=== PATIENT | male | born 2000 | race Caucasian/White ===

== ENCOUNTER 2019-01-16 23:43 | Emergency (ER) | payer MEDICAID ==
[~2019-01-16] VITALS: Ht 182.9 cm; Wt 65.0 kg
[~2019-01-16 23:43] MED LIST: ARIP10TA33 PO; ARIP20TA5 PO; BUPR75TA5 PO; FLONASE; HYDR25CA PO; VALP250C59 PO; [UNRECOGNIZED DRUG - OTHER] PO; wellbutrin
[2019-01-16 23:45] VITALS: BP 114/76
[2019-01-17] MEDS ORDERED: HYDROcodone/APAP 5/325 TABLET ONE (00:29)
[2019-01-17] MEDS ORDERED: HYDROcodone/APAP 5/325 TABLET PO ONE (00:30)
--- NOTE | 2019-01-17 00:33 | NUR ---
Pt medicated per MAR.
--- NOTE | 2019-01-17 01:00 | NUR ---
TASK RN: DC EDUCATION PROVIDED, PT DEMONSTRATES UNDERSTANDING. PT AMBULATED STEADILY TO DC WITH RN. PT STATES FRIEND TO TRANSPORT PT HOME.
== END 2019-01-17 01:02 | disposition home or self-care (01) ==
LOC: ED 01-17 00:59
DX: K08.89 Other specified disorders of teeth and supporting structures (principal); F17.200 Nicotine dependence, unspecified, uncomplicated
CPT/HCPCS: 99283

== ENCOUNTER 2019-05-05 08:20 | Emergency (ER) | payer MEDICAID ==
[~2019-05-05] VITALS: Ht 182.9 cm; Wt 65.1 kg
[2019-05-05 08:24] VITALS: BP 106/68
--- NOTE | 2019-05-05 09:42 | NUR ---
PT TO ROOM FROM LOBBY
== END 2019-05-05 10:12 | disposition home or self-care (01) ==
LOC: ED 10:06
DX: K02.9 Dental caries, unspecified (principal); F17.200 Nicotine dependence, unspecified, uncomplicated
CPT/HCPCS: 99283

== ENCOUNTER 2019-06-07 22:14 | Emergency (ER) | payer MEDICAID ==
[~2019-06-07] VITALS: Ht 185.4 cm; Wt 61.7 kg
[2019-06-07 22:20] VITALS: BP 114/79
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
--- NOTE | 2019-06-07 22:39 | NUR ---
MD AT BEDSIDE, DRESSINGS REMOVED. PT UPDATED ON POC.
[2019-06-07] MEDS ORDERED: IBUPROFEN 200 MG TABLET ONE (22:42)
--- NOTE | 2019-06-07 22:44 | NUR ---
PT MEDICATED PER MAR.
[2019-06-07] MEDS ORDERED: IBUPROFEN 600 MG TABLET PO ONE ×2 (23:00)
--- NOTE | 2019-06-08 00:08 | NUR ---
Patient/Caregiver given discharge instructions and they have confirmed that they understand the instructions. Patient ambulatory with steady gait.
== END 2019-06-08 00:09 | disposition home or self-care (01) ==
LOC: ED 22:49
DX: S80.212A Abrasion, left knee, initial encounter (principal); S60.512A Abrasion of left hand, initial encounter; L03.116 Cellulitis of left lower limb; L03.114 Cellulitis of left upper limb; F20.9 Schizophrenia, unspecified; F32.9 Major depressive disorder, single episode, unspecified; F41.1 Generalized anxiety disorder; F17.200 Nicotine dependence, unspecified, uncomplicated; W01.0XXA Fall on same level from slipping, tripping and stumbling without subsequent striking against object, initial encounter; Y93.89 Activity, other specified; Y92.830 Public park as the place of occurrence of the external cause; Y99.8 Other external cause status
CPT/HCPCS: 99283

== ENCOUNTER 2019-09-10 04:34 | Emergency (ER) | payer MEDICAID, OTHER ==
[~2019-09-10] VITALS: Ht 188 cm; Wt 60.7 kg
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
[2019-09-10 05:37] LABS: RAPID INFLUENZA A Negative (Negative); RAPID INFLUENZA B Negative (Negative)
--- NOTE | 2019-09-10 06:01 | NUR ---
PT. PROVIDED WITH WATER AFTER OK FROM JESSIE GUERRERO. DENIES OTHER NEEDS. ALL MONITORS IN PLACE. ALL SAFETY MEASURES OBSERVED. NO DISTRESS NOTED. AWAITING CHEST X-RAY READ.
[2019-09-10 06:41] VITALS: BP 119/86
--- NOTE | 2019-09-10 06:44 | NUR ---
PT RESTING ON [facility]. MONITORING IN PLACE. ALL SAFETY MEASURES IN PLACE.
--- NOTE | 2019-09-10 06:46 | NUR ---
CALLED RADIOLOGY REGARDING XR READ. THEY ARE LOOKING INTO IT.
--- NOTE | 2019-09-10 06:51 | NUR ---
REPORT GIVEN TO ROBYN CARROLL.
[2019-09-10] MEDS ORDERED: DEXAMETHASONE 4 MG TABLET PO ONE (07:00)
[2019-09-10] MEDS ORDERED: DEXAMETHASONE 4 MG TABLET ONE (07:07)
== END 2019-09-10 07:14 | disposition home or self-care (01) ==
LOC: ED 05:09
DX: B34.9 Viral infection, unspecified (principal); F17.210 Nicotine dependence, cigarettes, uncomplicated
CPT/HCPCS: 71046; 87400; 93005; 99284

== ENCOUNTER 2020-02-03 07:53 | Emergency (ER) | payer SELFPAY ==
[~2020-02-03] VITALS: Ht 185.4 cm; Wt 62.1 kg
[2020-02-03 08:00] VITALS: BP 108/70
== END 2020-02-03 09:01 | disposition home or self-care (01) ==
LOC: ED 08:17
DX: J00 Acute nasopharyngitis [common cold] (principal); J45.909 Unspecified asthma, uncomplicated
CPT/HCPCS: 99283

== ENCOUNTER 2020-05-23 06:21 | Inpatient (IN) | payer MEDICAID, OTHER ==
[~2020-05-23] VITALS: Ht 185.4 cm; Wt 63.8 kg
[2020-05-23] MEDS ORDERED: ONDANSETRON 2MG/ML, 2ML IVPush ONE ×2 (06:30→09:00)
[2020-05-23] MEDS ORDERED: SODIUM CHLORIDE 0.9% 1,000ML IVBOLUS ONE ×2 (06:30→09:00)
[2020-05-23] MEDS: MORPHINE SULFATE 4 MG/ML, 1ML IVPush PRN ×2 (06:44→07:07)
[2020-05-23] MEDS ORDERED: ALBUTEROL/IPRATROPIUM 2.5MG/0.5MG, 3 ML ONE ×2 (06:52→06:54)
[2020-05-23 06:54] LABS: BASOPHILS # (AUTO) 0.02 x10^3/uL (0-0.3); BASOPHILS % (AUTO) 0 % (0-1); EOSINOPHILS # (AUTO) 0.19 x10^3/uL (0-0.8); EOSINOPHILS % (AUTO) 2 % (1-7); LYMPHOCYTES # (AUTO) 3.98 x10^3/uL (1-6.1); LYMPHOCYTES % (AUTO) 39 % (22-44); MD NO; MEAN CORPUSCULAR HEMOGLOBIN 31.9 pg (27.5-34.5); MEAN CORPUSCULAR HGB CONC 34.3 g/dL (33.2-36.2); MEAN CORPUSCULAR VOLUME 93.1 fL (81-97); MEAN PLATELET VOLUME 9.3 fL (7.4-10.4); MONOCYTES # (AUTO) 0.81 x10^3/uL (0-1.4); MONOCYTES % (AUTO) 8 % (2-9); NEUTROPHILS # (AUTO) 5.15 x10^3/uL (1.8-8.0); NEUTROPHILS % (AUTO) 51 % (42-75); PLATELET COUNT 184 x10^3/uL (130-400); RED BLOOD COUNT 4.94 x10^6/uL (4.38-5.82); RED CELL DISTRIBUTION WIDTH 12.9 % (9.4-14.8)
[2020-05-23] MEDS ORDERED: SILVER SULF. CRM 1% , 25GM TP ONE (07:00)
[2020-05-23] MEDS ORDERED: ALBUTEROL/IPRATROPIUM 2.5MG/0.5MG, 3 ML NPPB ONE (07:00)
[2020-05-23] MEDS ORDERED: DIPH,PERTUSS(ACELL),TET VAC/PF 0.5 ML IM-VACC ONE ×2 (07:00→08:07)
[2020-05-23 07:05] LABS: ALBUMIN 3.8 g/dL (3.4-5.0); ANION GAP 4 mmol/L (5-15); CALCIUM 8.3 mg/dL (8.5-10.1); CHLORIDE 115 mmol/L (98-107); CREATININE 0.93 mg/dL (0.7-1.3)
[2020-05-23] MEDS ORDERED: MORPHINE SULFATE 4 MG/ML, 1ML ONE (07:06)
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
--- NOTE | 2020-05-23 07:30 | NUR ---
ERP TO BEDSIDE.
[2020-05-23] MEDS ORDERED: SILVER SULF. CRM 1% , 25GM ONE (07:48)
[2020-05-23] MEDS ORDERED: HYDROmorphone 1 MG/ML, 1ML INJ ONE ×2 (08:06→08:33)
[2020-05-23] MEDS: HYDROmorphone 2 MG/ML, 1ML IVPush PRN ×2 (08:09→08:39)
[2020-05-23] MEDS ORDERED: SODIUM CHLORIDE 0.9% 1,000 ML IV ONE (08:53)
[2020-05-23] MEDS ORDERED: ONDANSETRON 2MG/ML, 2ML ONE (08:54)
[2020-05-23] MEDS ORDERED: SODIUM CHLORIDE FLUSH 10ML SYR IVF PRN (09:30)
[2020-05-23] MEDS ORDERED: NEOSPORIN OINT. PKT 1 PACKET ONE (09:39)
[2020-05-23] MEDS ORDERED: ACETAMINOPHEN 325 MG TABLET PO PRN (11:30)
[2020-05-23] MEDS ORDERED: POLYETHYLENE GLYCOL 17 GM PACKET PO PRN (11:30)
[2020-05-23] MEDS ORDERED: HYDROcodone/APAP 5/325 TABLET PO PRN (11:30)
[2020-05-23] MEDS ORDERED: BISACODYL 10 MG SUPP PR PRN (11:30)
[2020-05-23] MEDS: ONDANSETRON 2MG/ML, 2ML IVPush PRN ×2 (11:55→19:49)
[2020-05-23] MEDS: NICOTINE 21 MG/24 HR PATCH.TD24 TD SCH (11:56)
[2020-05-23] MEDS: morphine SULFATE 10 MG/ML, 1ML IVPush PRN ×4 (11:56→18:12)
[2020-05-23] MEDS: SODIUM CHLORIDE 0.9% 1,000 ML IV SCH ×2 (11:56→21:01)
[2020-05-23] MEDS: ENOXAPARIN 40 MG/0.4 ML SQ SCH ×2 (11:56→12:00)
[2020-05-23 13:24] VITALS: BP 130/72
[2020-05-23] MEDS: SILVER SULF. CRM 1%, 400GM TP SCH ×2 (16:00→21:01)
[2020-05-23] MEDS: ALBUTEROL HFA 90 MCG/SPRAY INH PRN (16:00)
[2020-05-23] MEDS: KETOROLAC 30 MG/1 ML IVPush PRN (18:48)
[2020-05-23 19:07] VITALS: BP 118/64
[2020-05-23] MEDS: HYDROcodone/APAP 10/325 MG TABLET PO SCH (19:48)
[2020-05-24 00:05] VITALS: BP 138/69
[2020-05-24] MEDS: HYDROcodone/APAP 10/325 MG TABLET PO SCH ×4 (04:27→23:16)
[2020-05-24] MEDS: SODIUM CHLORIDE 0.9% 1,000 ML IV SCH ×3 (04:27→21:25)
[2020-05-24 04:49] LABS: BASOPHILS # (AUTO) 0.01 x10^3/uL (0-0.3); BASOPHILS % (AUTO) 0 % (0-1); EOSINOPHILS # (AUTO) 0.12 x10^3/uL (0-0.8); EOSINOPHILS % (AUTO) 1 % (1-7); LYMPHOCYTES # (AUTO) 2.96 x10^3/uL (1-6.1); LYMPHOCYTES % (AUTO) 26 % (22-44); MD NO; MEAN CORPUSCULAR HEMOGLOBIN 31.3 pg (27.5-34.5); MEAN CORPUSCULAR HGB CONC 33.1 g/dL (33.2-36.2); MEAN CORPUSCULAR VOLUME 94.7 fL (81-97); MEAN PLATELET VOLUME 9.6 fL (7.4-10.4); MONOCYTES # (AUTO) 0.89 x10^3/uL (0-1.4); MONOCYTES % (AUTO) 8 % (2-9); NEUTROPHILS # (AUTO) 7.55 x10^3/uL (1.8-8.0); NEUTROPHILS % (AUTO) 66 % (42-75); PLATELET COUNT 182 x10^3/uL (130-400); RED BLOOD COUNT 4.73 x10^6/uL (4.38-5.82); RED CELL DISTRIBUTION WIDTH 12.8 % (9.4-14.8)
[2020-05-24 04:57] LABS: ANION GAP 8 mmol/L (5-15); CALCIUM 8.5 mg/dL (8.5-10.1); CHLORIDE 111 mmol/L (98-107)
[2020-05-24 04:58] LABS: CREATININE 0.68 mg/dL (0.7-1.3)
[2020-05-24] MEDS: KETOROLAC 30 MG/1 ML IVPush PRN ×2 (05:32→15:53)
[2020-05-24 06:38] VITALS: BP 121/69
[2020-05-24] MEDS ORDERED: MAGNESIUM SULFATE PMX 2GM/50ML 50 ML IV ONE (08:30)
[2020-05-24] MEDS: ONDANSETRON 2MG/ML, 2ML IVPush PRN (09:28)
[2020-05-24] MEDS: SILVER SULF. CRM 1%, 400GM TP SCH ×3 (09:28→21:25)
[2020-05-24] MEDS: morphine SULFATE 10 MG/ML, 1ML IVPush PRN ×4 (09:28→20:18)
[2020-05-24] MEDS: ENOXAPARIN 40 MG/0.4 ML SQ SCH (10:48)
[2020-05-24] MEDS: NICOTINE 21 MG/24 HR PATCH.TD24 TD SCH (10:53)
[2020-05-24 12:31] VITALS: BP 153/67
[2020-05-24] MEDS ORDERED: PROMETHAZINE 25 MG/ML, 1ML ONE (13:30)
[2020-05-24] MEDS: PROMETHAZINE 25 MG/ML, 1ML IM PRN (13:40)
[2020-05-24] MEDS: ALBUTEROL HFA 90 MCG/SPRAY INH PRN (16:04)
[2020-05-24 18:58] VITALS: BP 121/63
[2020-05-24] MEDS ORDERED: NICOTINE GUM 2 MG BC ONE (22:30)
[2020-05-25] MEDS: morphine SULFATE 10 MG/ML, 1ML IVPush PRN ×6 (00:20→21:21)
[2020-05-25 00:27] VITALS: BP 137/94
[2020-05-25] MEDS: HYDROcodone/APAP 10/325 MG TABLET PO SCH ×3 (05:32→17:40)
[2020-05-25] MEDS: KETOROLAC 30 MG/1 ML IVPush PRN ×2 (05:32→14:37)
[2020-05-25 06:14] LABS: BASOPHILS # (AUTO) 0.03 x10^3/uL (0-0.3); BASOPHILS % (AUTO) 0 % (0-1); EOSINOPHILS # (AUTO) 0.16 x10^3/uL (0-0.8); EOSINOPHILS % (AUTO) 2 % (1-7); LYMPHOCYTES # (AUTO) 4.18 x10^3/uL (1-6.1); LYMPHOCYTES % (AUTO) 43 % (22-44); MD NO; MEAN CORPUSCULAR HEMOGLOBIN 31.8 pg (27.5-34.5); MEAN CORPUSCULAR HGB CONC 33.8 g/dL (33.2-36.2); MEAN CORPUSCULAR VOLUME 94.2 fL (81-97); MEAN PLATELET VOLUME 9.8 fL (7.4-10.4); MONOCYTES # (AUTO) 0.72 x10^3/uL (0-1.4); MONOCYTES % (AUTO) 7 % (2-9); NEUTROPHILS # (AUTO) 4.59 x10^3/uL (1.8-8.0); NEUTROPHILS % (AUTO) 47 % (42-75); PLATELET COUNT 196 x10^3/uL (130-400); RED BLOOD COUNT 5.04 x10^6/uL (4.38-5.82); RED CELL DISTRIBUTION WIDTH 12.6 % (9.4-14.8)
[2020-05-25 06:25] LABS: CHLORIDE 114 mmol/L (98-107)
[2020-05-25 06:46] LABS: ANION GAP 9 mmol/L (5-15); CALCIUM 8.5 mg/dL (8.5-10.1); CREATININE 0.74 mg/dL (0.7-1.3)
[2020-05-25 07:21] VITALS: BP 130/82
[2020-05-25] MEDS: SODIUM CHLORIDE 0.9% 1,000 ML IV SCH ×2 (07:30→17:41)
[2020-05-25] MEDS: SILVER SULF. CRM 1%, 400GM TP SCH ×2 (08:26→17:41)
[2020-05-25] MEDS: PROMETHAZINE 25 MG/ML, 1ML IM PRN (08:31)
[2020-05-25] MEDS ORDERED: MAGNESIUM SULFATE PMX 2GM/50ML 50 ML IV ONE (09:00)
[2020-05-25] MEDS: NICOTINE 21 MG/24 HR PATCH.TD24 TD SCH (11:20)
[2020-05-25] MEDS: ENOXAPARIN 40 MG/0.4 ML SQ SCH (11:21)
[2020-05-25 13:50] VITALS: BP 121/74
[2020-05-25 14:34] VITALS: BP 125/82
[2020-05-25] MEDS: ONDANSETRON 2MG/ML, 2ML IVPush PRN (14:37)
[2020-05-25] MEDS: DIAZEPAM 2 MG TABLET PO PRN (18:24)
[2020-05-25 19:58] VITALS: BP 130/87
[2020-05-26] MEDS: HYDROcodone/APAP 10/325 MG TABLET PO SCH ×4 (00:12→17:42)
[2020-05-26] MEDS: SILVER SULF. CRM 1%, 400GM TP SCH ×3 (00:13→17:19)
[2020-05-26] MEDS: SODIUM CHLORIDE 0.9% 1,000 ML IV SCH ×2 (00:13→09:41)
[2020-05-26 00:14] VITALS: BP 134/77
[2020-05-26] MEDS: morphine SULFATE 10 MG/ML, 1ML IVPush PRN ×4 (01:09→21:32)
[2020-05-26 06:47] VITALS: BP 132/91
[2020-05-26] MEDS: DIAZEPAM 2 MG TABLET PO PRN (09:40)
[2020-05-26] MEDS: NICOTINE 21 MG/24 HR PATCH.TD24 TD SCH (11:38)
[2020-05-26] MEDS: HYDROXYZINE PAMOATE 50MG CAP PO PRN ×2 (11:38→19:32)
[2020-05-26] MEDS: ENOXAPARIN 40 MG/0.4 ML SQ SCH (11:38)
[2020-05-26 13:46] VITALS: BP 139/82
[2020-05-26] MEDS: NS + 20MEQ KCL 1,000 ML IV SCH (14:20)
[2020-05-26 19:15] VITALS: BP 168/83
[2020-05-26] MEDS: ONDANSETRON 2MG/ML, 2ML IVPush PRN (19:32)
[2020-05-26] MEDS: ALBUTEROL HFA 90 MCG/SPRAY INH PRN (19:38)
[2020-05-27] MEDS: TRAZODONE 50MG TABLET PO PRN (00:34)
[2020-05-27] MEDS: SILVER SULF. CRM 1%, 400GM TP SCH ×4 (00:35→23:53)
[2020-05-27 00:45] VITALS: BP 120/74
[2020-05-27] MEDS: HYDROcodone/APAP 10/325 MG TABLET PO SCH ×2 (01:45→08:00)
[2020-05-27] MEDS: NS + 20MEQ KCL 1,000 ML IV SCH ×2 (01:45→12:00)
[2020-05-27 05:25] LABS: BASOPHILS # (AUTO) 0.04 x10^3/uL (0-0.3); BASOPHILS % (AUTO) 1 % (0-1); EOSINOPHILS # (AUTO) 0.24 x10^3/uL (0-0.8); EOSINOPHILS % (AUTO) 3 % (1-7); LYMPHOCYTES # (AUTO) 2.66 x10^3/uL (1-6.1); LYMPHOCYTES % (AUTO) 34 % (22-44); MD NO; MEAN CORPUSCULAR HEMOGLOBIN 31.6 pg (27.5-34.5); MEAN CORPUSCULAR HGB CONC 33.9 g/dL (33.2-36.2); MEAN CORPUSCULAR VOLUME 93.3 fL (81-97); MEAN PLATELET VOLUME 9.2 fL (7.4-10.4); MONOCYTES % (AUTO) 9 % (2-9); NEUTROPHILS # (AUTO) 4.18 x10^3/uL (1.8-8.0); NEUTROPHILS % (AUTO) 53 % (42-75); PLATELET COUNT 215 x10^3/uL (130-400); RED BLOOD COUNT 4.79 x10^6/uL (4.38-5.82); RED CELL DISTRIBUTION WIDTH 12.5 % (9.4-14.8)
[2020-05-27 05:27] LABS: ANION GAP 5 mmol/L (5-15); CALCIUM 8.7 mg/dL (8.5-10.1); CHLORIDE 112 mmol/L (98-107)
[2020-05-27 06:48] VITALS: BP 98/56
[2020-05-27] MEDS: morphine SULFATE 10 MG/ML, 1ML IVPush PRN ×3 (09:41→22:47)
[2020-05-27 12:05] VITALS: BP 120/81
[2020-05-27] MEDS: HYDROcodone/APAP 10/325 MG TABLET PO PRN ×2 (12:17→20:22)
[2020-05-27] MEDS: ENOXAPARIN 40 MG/0.4 ML SQ SCH (12:24)
[2020-05-27] MEDS: NICOTINE 21 MG/24 HR PATCH.TD24 TD SCH (12:25)
[2020-05-27] MEDS: DIAZEPAM 2 MG TABLET PO PRN (15:55)
[2020-05-27] MEDS: KETOROLAC 30 MG/1 ML IVPush PRN ×2 (18:11→23:49)
[2020-05-27 21:44] VITALS: BP 123/81
[2020-05-27] MEDS: ONDANSETRON 2MG/ML, 2ML IVPush PRN (23:49)
[2020-05-28] MEDS: NS + 20MEQ KCL 1,000 ML IV SCH ×2 (00:27→13:19)
[2020-05-28 00:46] VITALS: BP 111/73
[2020-05-28] MEDS: morphine SULFATE 10 MG/ML, 1ML IVPush PRN ×5 (02:04→21:22)
[2020-05-28] MEDS: TRAZODONE 50MG TABLET PO PRN ×2 (02:06→23:11)
[2020-05-28 06:58] VITALS: BP 114/70
[2020-05-28 07:12] LABS: ANION GAP 6 mmol/L (5-15); CALCIUM 9.2 mg/dL (8.5-10.1); CHLORIDE 109 mmol/L (98-107); CREATININE 0.75 mg/dL (0.7-1.3)
[2020-05-28] MEDS: ENOXAPARIN 40 MG/0.4 ML SQ SCH (11:16)
[2020-05-28] MEDS: NICOTINE 21 MG/24 HR PATCH.TD24 TD SCH (11:16)
[2020-05-28] MEDS: SILVER SULF. CRM 1%, 400GM TP SCH ×3 (11:22→22:02)
[2020-05-28 12:23] VITALS: BP 117/75
[2020-05-28] MEDS: HYDROcodone/APAP 10/325 MG TABLET PO PRN ×2 (13:19→23:12)
[2020-05-28] MEDS: HYDROXYZINE PAMOATE 50MG CAP PO PRN ×2 (13:25→21:28)
[2020-05-28] MEDS: ONDANSETRON 2MG/ML, 2ML IVPush PRN (13:59)
[2020-05-28] MEDS: DIAZEPAM 2 MG TABLET PO PRN (14:31)
[2020-05-28] MEDS: PROMETHAZINE 25 MG/ML, 1ML IM PRN (18:03)
[2020-05-28 18:41] VITALS: BP 133/92
[2020-05-29] MEDS: ONDANSETRON 2MG/ML, 2ML IVPush PRN (00:03)
[2020-05-29 00:08] VITALS: BP 145/79
[2020-05-29] MEDS: NS + 20MEQ KCL 1,000 ML IV SCH ×2 (05:37→19:41)
[2020-05-29 05:40] LABS: BASOPHILS # (AUTO) 0.03 x10^3/uL (0-0.3); BASOPHILS % (AUTO) 0 % (0-1); EOSINOPHILS # (AUTO) 0.25 x10^3/uL (0-0.8); EOSINOPHILS % (AUTO) 3 % (1-7); LYMPHOCYTES # (AUTO) 1.89 x10^3/uL (1-6.1); LYMPHOCYTES % (AUTO) 21 % (22-44); MD NO; MEAN CORPUSCULAR HEMOGLOBIN 31.4 pg (27.5-34.5); MEAN CORPUSCULAR HGB CONC 33.4 g/dL (33.2-36.2); MEAN PLATELET VOLUME 9.8 fL (7.4-10.4); MONOCYTES # (AUTO) 0.88 x10^3/uL (0-1.4); MONOCYTES % (AUTO) 10 % (2-9); NEUTROPHILS # (AUTO) 6.18 x10^3/uL (1.8-8.0); NEUTROPHILS % (AUTO) 67 % (42-75); PLATELET COUNT 232 x10^3/uL (130-400); RED CELL DISTRIBUTION WIDTH 12.8 % (9.4-14.8)
[2020-05-29 05:41] LABS: CHLORIDE 106 mmol/L (98-107)
[2020-05-29 05:48] LABS: ANION GAP 8 mmol/L (5-15); CALCIUM 9.7 mg/dL (8.5-10.1); CREATININE 0.87 mg/dL (0.7-1.3)
[2020-05-29 08:00] VITALS: BP 111/77
[2020-05-29] MEDS: morphine SULFATE 10 MG/ML, 1ML IVPush PRN ×4 (08:24→20:17)
[2020-05-29] MEDS: SILVER SULF. CRM 1%, 400GM TP SCH ×2 (09:18→16:13)
[2020-05-29] MEDS: HYDROcodone/APAP 10/325 MG TABLET PO PRN ×2 (09:53→18:40)
[2020-05-29] MEDS: NICOTINE 21 MG/24 HR PATCH.TD24 TD SCH (12:16)
[2020-05-29] MEDS: ENOXAPARIN 40 MG/0.4 ML SQ SCH (12:17)
[2020-05-29] MEDS: PROMETHAZINE 25 MG/ML, 1ML IM PRN (12:53)
[2020-05-29] MEDS: HYDROXYZINE PAMOATE 50MG CAP PO PRN (14:45)
[2020-05-29 15:59] VITALS: BP 118/76
[2020-05-29] MEDS: DIAZEPAM 2 MG TABLET PO PRN (17:39)
[2020-05-29 19:52] VITALS: BP 139/83
[2020-05-30] MEDS: morphine SULFATE 10 MG/ML, 1ML IVPush PRN ×3 (00:06→20:00)
[2020-05-30] MEDS: DOCUSATE 100 MG CAPSULE PO PRN (00:10)
[2020-05-30] MEDS: SILVER SULF. CRM 1%, 400GM TP SCH ×4 (00:11→22:02)
[2020-05-30] MEDS: ONDANSETRON 2MG/ML, 2ML IVPush PRN ×2 (01:21→07:48)
[2020-05-30] MEDS: HYDROXYZINE PAMOATE 50MG CAP PO PRN ×3 (01:25→15:39)
[2020-05-30 01:34] VITALS: BP 123/78
[2020-05-30] MEDS: HYDROcodone/APAP 10/325 MG TABLET PO PRN (02:17)
[2020-05-30 06:42] VITALS: BP 117/63
[2020-05-30] MEDS: SERTRALINE 50MG TABLET PO SCH (08:44)
[2020-05-30] MEDS: OXYcodone IR 5MG TABLET PO PRN ×2 (09:33→14:57)
[2020-05-30] MEDS: NYSTATIN 500,000 UNITS/5 ML UDC PO SCH ×4 (10:16→22:02)
[2020-05-30] MEDS: NS + 20MEQ KCL 1,000 ML IV SCH ×2 (10:16→23:48)
[2020-05-30] MEDS: ACETAMINOPHEN 325 MG TABLET PO SCH ×3 (10:19→22:02)
[2020-05-30] MEDS: IBUPROFEN 600 MG TABLET PO SCH ×3 (11:00→22:02)
[2020-05-30] MEDS: ENOXAPARIN 40 MG/0.4 ML SQ SCH (14:00)
[2020-05-30 14:39] VITALS: BP 108/69
[2020-05-30] MEDS: NICOTINE 21 MG/24 HR PATCH.TD24 TD SCH (14:55)
[2020-05-30 19:52] VITALS: BP 103/63
[2020-05-30] MEDS: DIAZEPAM 2 MG TABLET PO PRN (23:48)
[2020-05-31 00:24] VITALS: BP 126/72
[2020-05-31] MEDS: morphine SULFATE 10 MG/ML, 1ML IVPush PRN ×4 (04:24→19:53)
[2020-05-31] MEDS: NYSTATIN 500,000 UNITS/5 ML UDC PO SCH ×4 (05:49→21:19)
[2020-05-31] MEDS: IBUPROFEN 600 MG TABLET PO SCH ×4 (05:49→21:19)
[2020-05-31] MEDS: ACETAMINOPHEN 325 MG TABLET PO SCH ×4 (05:49→21:19)
[2020-05-31 07:06] VITALS: BP 117/69
[2020-05-31 07:14] LABS: BASOPHILS # (AUTO) 0.03 x10^3/uL (0-0.3); BASOPHILS % (AUTO) 1 % (0-1); EOSINOPHILS # (AUTO) 0.24 x10^3/uL (0-0.8); EOSINOPHILS % (AUTO) 4 % (1-7); LYMPHOCYTES # (AUTO) 2.71 x10^3/uL (1-6.1); LYMPHOCYTES % (AUTO) 42 % (22-44); MD NO; MEAN CORPUSCULAR HEMOGLOBIN 30.8 pg (27.5-34.5); MEAN CORPUSCULAR HGB CONC 32.8 g/dL (33.2-36.2); MEAN CORPUSCULAR VOLUME 93.8 fL (81-97); MEAN PLATELET VOLUME 8.5 fL (7.4-10.4); MONOCYTES # (AUTO) 0.67 x10^3/uL (0-1.4); MONOCYTES % (AUTO) 10 % (2-9); NEUTROPHILS # (AUTO) 2.88 x10^3/uL (1.8-8.0); NEUTROPHILS % (AUTO) 44 % (42-75); PLATELET COUNT 249 x10^3/uL (130-400); RED BLOOD COUNT 5.03 x10^6/uL (4.38-5.82); RED CELL DISTRIBUTION WIDTH 12.2 % (9.4-14.8)
[2020-05-31 07:26] LABS: ANION GAP 6 mmol/L (5-15); CALCIUM 9.3 mg/dL (8.5-10.1); CHLORIDE 108 mmol/L (98-107)
[2020-05-31 07:27] LABS: CREATININE 0.76 mg/dL (0.7-1.3)
[2020-05-31] MEDS: SERTRALINE 50MG TABLET PO SCH (08:14)
[2020-05-31] MEDS ORDERED: BISACODYL 10 MG SUPP PR PRN (09:00)
[2020-05-31] MEDS: OXYcodone IR 5MG TABLET PO PRN ×3 (09:29→21:26)
[2020-05-31] MEDS: SILVER SULF. CRM 1%, 400GM TP SCH ×3 (09:29→22:41)
[2020-05-31] MEDS: NS + 20MEQ KCL 1,000 ML IV SCH ×2 (10:18→19:52)
[2020-05-31] MEDS: ONDANSETRON 2MG/ML, 2ML IVPush PRN ×2 (11:52→23:23)
[2020-05-31] MEDS: ENOXAPARIN 40 MG/0.4 ML SQ SCH (13:15)
[2020-05-31] MEDS: HYDROXYZINE PAMOATE 50MG CAP PO PRN (13:15)
[2020-05-31] MEDS: NICOTINE 21 MG/24 HR PATCH.TD24 TD SCH (13:15)
[2020-05-31 13:18] VITALS: BP 127/81
[2020-05-31 19:36] VITALS: BP 134/89
[2020-06-01 00:21] VITALS: BP 139/93
[2020-06-01] MEDS: morphine SULFATE 10 MG/ML, 1ML IVPush PRN ×3 (01:04→12:32)
[2020-06-01] MEDS: HYDROXYZINE PAMOATE 50MG CAP PO PRN (01:10)
[2020-06-01] MEDS: PROMETHAZINE 25 MG/ML, 1ML IM PRN ×2 (02:42→11:25)
[2020-06-01] MEDS: DIAZEPAM 2 MG TABLET PO PRN (03:40)
[2020-06-01] MEDS: ACETAMINOPHEN 325 MG TABLET PO SCH ×3 (03:40→16:00)
[2020-06-01] MEDS: NS + 20MEQ KCL 1,000 ML IV SCH ×2 (06:07→16:21)
[2020-06-01] MEDS: IBUPROFEN 600 MG TABLET PO SCH ×4 (06:14→21:26)
[2020-06-01 06:52] VITALS: BP 115/74
[2020-06-01] MEDS: SERTRALINE 50MG TABLET PO SCH (08:31)
[2020-06-01] MEDS: NYSTATIN 500,000 UNITS/5 ML UDC PO SCH ×4 (08:31→21:26)
[2020-06-01 09:13] LABS: BASOPHILS # (AUTO) 0.02 x10^3/uL (0-0.3); BASOPHILS % (AUTO) 0 % (0-1); EOSINOPHILS # (AUTO) 0.25 x10^3/uL (0-0.8); EOSINOPHILS % (AUTO) 3 % (1-7); LYMPHOCYTES # (AUTO) 2.94 x10^3/uL (1-6.1); LYMPHOCYTES % (AUTO) 35 % (22-44); MD NO; MEAN CORPUSCULAR HEMOGLOBIN 31.2 pg (27.5-34.5); MEAN CORPUSCULAR HGB CONC 33.2 g/dL (33.2-36.2); MONOCYTES # (AUTO) 0.71 x10^3/uL (0-1.4); MONOCYTES % (AUTO) 8 % (2-9); NEUTROPHILS # (AUTO) 4.52 x10^3/uL (1.8-8.0); NEUTROPHILS % (AUTO) 54 % (42-75); PLATELET COUNT 240 x10^3/uL (130-400); RED BLOOD COUNT 4.96 x10^6/uL (4.38-5.82); RED CELL DISTRIBUTION WIDTH 12.1 % (9.4-14.8)
[2020-06-01 09:18] LABS: ANION GAP 8 mmol/L (5-15); CHLORIDE 112 mmol/L (98-107); CREATININE 0.77 mg/dL (0.7-1.3)
[2020-06-01] MEDS ORDERED: FENTANYL 25 MCG PATCH TD SCH (11:00)
[2020-06-01] MEDS: DOCUSATE 100 MG CAPSULE PO PRN (11:52)
[2020-06-01] MEDS: SILVER SULF. CRM 1%, 400GM TP SCH (12:00)
[2020-06-01] MEDS: NICOTINE GUM 2 MG BC PRN (12:28)
[2020-06-01 14:50] VITALS: BP 134/72
[2020-06-01] MEDS: NICOTINE 21 MG/24 HR PATCH.TD24 TD SCH (14:56)
[2020-06-01] MEDS: ENOXAPARIN 40 MG/0.4 ML SQ SCH (14:57)
[2020-06-01] MEDS: OXYcodone IR 5MG TABLET PO PRN ×2 (16:00→21:26)
[2020-06-01 20:15] VITALS: BP 127/80
[2020-06-02] MEDS: morphine SULFATE 10 MG/ML, 1ML IVPush PRN ×5 (00:23→22:37)
[2020-06-02] MEDS: ACETAMINOPHEN 325 MG TABLET PO SCH ×4 (00:24→19:58)
[2020-06-02] MEDS: SILVER SULF. CRM 1%, 400GM TP SCH ×3 (00:30→22:00)
[2020-06-02 01:15] VITALS: BP 118/73
[2020-06-02] MEDS: PROMETHAZINE 25 MG/ML, 1ML IM PRN ×2 (02:16→10:17)
[2020-06-02] MEDS: NS + 20MEQ KCL 1,000 ML IV SCH (02:16)
[2020-06-02] MEDS: OXYcodone IR 5MG TABLET PO PRN ×4 (02:17→19:59)
[2020-06-02] MEDS: NYSTATIN 500,000 UNITS/5 ML UDC PO SCH ×4 (05:46→22:35)
[2020-06-02] MEDS: IBUPROFEN 600 MG TABLET PO SCH ×4 (06:21→22:36)
[2020-06-02 06:25] LABS: BASOPHILS # (AUTO) 0.03 x10^3/uL (0-0.3); BASOPHILS % (AUTO) 0 % (0-1); EOSINOPHILS # (AUTO) 0.25 x10^3/uL (0-0.8); EOSINOPHILS % (AUTO) 3 % (1-7); LYMPHOCYTES # (AUTO) 3.66 x10^3/uL (1-6.1); LYMPHOCYTES % (AUTO) 38 % (22-44); MD NO; MEAN CORPUSCULAR HEMOGLOBIN 31.4 pg (27.5-34.5); MEAN CORPUSCULAR HGB CONC 33.5 g/dL (33.2-36.2); MEAN CORPUSCULAR VOLUME 93.7 fL (81-97); MEAN PLATELET VOLUME 9.2 fL (7.4-10.4); MONOCYTES # (AUTO) 0.75 x10^3/uL (0-1.4); MONOCYTES % (AUTO) 8 % (2-9); NEUTROPHILS # (AUTO) 5.01 x10^3/uL (1.8-8.0); NEUTROPHILS % (AUTO) 52 % (42-75); PLATELET COUNT 254 x10^3/uL (130-400); RED BLOOD COUNT 4.91 x10^6/uL (4.38-5.82); RED CELL DISTRIBUTION WIDTH 12.2 % (9.4-14.8)
[2020-06-02 06:37] LABS: ANION GAP 5 mmol/L (5-15); CALCIUM 9.5 mg/dL (8.5-10.1); CHLORIDE 111 mmol/L (98-107); CREATININE 0.78 mg/dL (0.7-1.3)
[2020-06-02] MEDS: SERTRALINE 50MG TABLET PO SCH (08:32)
[2020-06-02 09:21] VITALS: BP 139/87
[2020-06-02] MEDS: NICOTINE 21 MG/24 HR PATCH.TD24 TD SCH (14:48)
[2020-06-02] MEDS: ENOXAPARIN 40 MG/0.4 ML SQ SCH (14:49)
[2020-06-02 15:59] VITALS: BP 122/80
[2020-06-02] MEDS: DIAZEPAM 2 MG TABLET PO PRN (17:49)
[2020-06-02 19:03] VITALS: BP 143/92
[2020-06-03] MEDS: morphine SULFATE 10 MG/ML, 1ML IVPush PRN ×3 (00:19→19:56)
[2020-06-03] MEDS: ACETAMINOPHEN 325 MG TABLET PO SCH ×4 (01:09→22:37)
[2020-06-03] MEDS: OXYcodone IR 5MG TABLET PO PRN ×5 (01:09→22:37)
[2020-06-03 01:23] VITALS: BP 135/85
[2020-06-03] MEDS: TRAZODONE 50MG TABLET PO SCH ×2 (01:40→21:00)
[2020-06-03] MEDS: HYDROXYZINE PAMOATE 50MG CAP PO PRN ×2 (02:20→08:56)
[2020-06-03] MEDS: PROMETHAZINE 25 MG/ML, 1ML IM PRN ×2 (02:21→14:08)
[2020-06-03] MEDS: NICOTINE GUM 2 MG BC PRN (02:25)
[2020-06-03] MEDS: NYSTATIN 500,000 UNITS/5 ML UDC PO SCH ×4 (06:00→19:56)
[2020-06-03] MEDS: IBUPROFEN 600 MG TABLET PO SCH ×4 (06:00→19:56)
[2020-06-03 07:47] VITALS: BP 110/70
[2020-06-03] MEDS: SERTRALINE 50MG TABLET PO SCH (08:56)
[2020-06-03] MEDS: SILVER SULF. CRM 1%, 400GM TP SCH (11:46)
[2020-06-03] MEDS: SENNA/DOCUSATE TABLET PO SCH (12:28)
[2020-06-03 13:07] VITALS: BP 122/76
[2020-06-03] MEDS: ENOXAPARIN 40 MG/0.4 ML SQ SCH (14:09)
[2020-06-03] MEDS: NICOTINE 21 MG/24 HR PATCH.TD24 TD SCH (14:09)
[2020-06-03] MEDS: DIAZEPAM 2 MG TABLET PO PRN (16:35)
[2020-06-03 18:45] VITALS: BP 128/80
[2020-06-04 00:22] VITALS: BP 138/67
[2020-06-04] MEDS: morphine SULFATE 10 MG/ML, 1ML IVPush PRN ×5 (00:44→19:36)
[2020-06-04] MEDS: OXYcodone IR 5MG TABLET PO PRN ×2 (02:51→17:34)
[2020-06-04] MEDS: ACETAMINOPHEN 325 MG TABLET PO SCH ×3 (02:52→17:34)
[2020-06-04] MEDS: PROMETHAZINE 25 MG/ML, 1ML IM PRN ×3 (03:11→18:51)
[2020-06-04] MEDS: SILVER SULF. CRM 1% , 25GM TP SCH ×2 (03:50→14:11)
[2020-06-04] MEDS: NYSTATIN 500,000 UNITS/5 ML UDC PO SCH ×4 (06:00→21:33)
[2020-06-04] MEDS: IBUPROFEN 600 MG TABLET PO SCH ×4 (06:00→21:00)
[2020-06-04 06:30] VITALS: BP 102/66
[2020-06-04 08:10] LABS: BASOPHILS # (AUTO) 0.06 x10^3/uL (0-0.3); BASOPHILS % (AUTO) 1 % (0-1); EOSINOPHILS # (AUTO) 0.29 x10^3/uL (0-0.8); EOSINOPHILS % (AUTO) 2 % (1-7); LYMPHOCYTES # (AUTO) 3.17 x10^3/uL (1-6.1); LYMPHOCYTES % (AUTO) 26 % (22-44); MD NO; MEAN CORPUSCULAR HEMOGLOBIN 31.2 pg (27.5-34.5); MEAN CORPUSCULAR HGB CONC 33.2 g/dL (33.2-36.2); MEAN PLATELET VOLUME 8.7 fL (7.4-10.4); MONOCYTES % (AUTO) 8 % (2-9); NEUTROPHILS # (AUTO) 7.84 x10^3/uL (1.8-8.0); NEUTROPHILS % (AUTO) 64 % (42-75); PLATELET COUNT 273 x10^3/uL (130-400); RED BLOOD COUNT 5.46 x10^6/uL (4.38-5.82); RED CELL DISTRIBUTION WIDTH 12.3 % (9.4-14.8)
[2020-06-04 08:26] LABS: ALBUMIN 3.6 g/dL (3.4-5.0); BILIRUBIN, DIRECT 0.2 mg/dL (0.1-0.2)
[2020-06-04 08:28] LABS: BILIRUBIN,INDIRECT 0.8 mg/dL (0.0-2.0)
[2020-06-04] MEDS ORDERED: GADOTERATE 7.5 MMOL/15 ML SYR ONE (10:42)
[2020-06-04] MEDS: SENNA/DOCUSATE TABLET PO SCH (11:08)
[2020-06-04] MEDS: SERTRALINE 50MG TABLET PO SCH (11:08)
[2020-06-04 12:15] VITALS: BP 119/72
[2020-06-04] MEDS: NICOTINE 21 MG/24 HR PATCH.TD24 TD SCH (14:10)
[2020-06-04] MEDS: ENOXAPARIN 40 MG/0.4 ML SQ SCH (14:11)
[2020-06-04 20:00] VITALS: BP 131/88
[2020-06-04] MEDS: DIAZEPAM 2 MG TABLET PO PRN (20:29)
[2020-06-04] MEDS: TRAZODONE 50MG TABLET PO SCH (21:00)
[2020-06-04] MEDS: ALBUTEROL HFA 90 MCG/SPRAY INH PRN (21:33)
[2020-06-05] MEDS: ACETAMINOPHEN 325 MG TABLET PO SCH ×5 (00:06→22:43)
[2020-06-05] MEDS: SILVER SULF. CRM 1% , 25GM TP SCH ×2 (00:07→08:20)
[2020-06-05] MEDS: morphine SULFATE 10 MG/ML, 1ML IVPush PRN ×5 (00:40→22:43)
[2020-06-05 02:00] VITALS: BP 125/79
[2020-06-05 04:35] LABS: BASOPHILS # (AUTO) 0.03 x10^3/uL (0-0.3); BASOPHILS % (AUTO) 0 % (0-1); EOSINOPHILS # (AUTO) 0.33 x10^3/uL (0-0.8); EOSINOPHILS % (AUTO) 3 % (1-7); LYMPHOCYTES # (AUTO) 4.24 x10^3/uL (1-6.1); LYMPHOCYTES % (AUTO) 38 % (22-44); MD NO; MEAN CORPUSCULAR HEMOGLOBIN 31.1 pg (27.5-34.5); MEAN CORPUSCULAR HGB CONC 33.2 g/dL (33.2-36.2); MEAN CORPUSCULAR VOLUME 93.7 fL (81-97); MEAN PLATELET VOLUME 8.7 fL (7.4-10.4); MONOCYTES # (AUTO) 0.95 x10^3/uL (0-1.4); MONOCYTES % (AUTO) 9 % (2-9); NEUTROPHILS # (AUTO) 5.57 x10^3/uL (1.8-8.0); NEUTROPHILS % (AUTO) 50 % (42-75); PLATELET COUNT 339 x10^3/uL (130-400); RED BLOOD COUNT 5.78 x10^6/uL (4.38-5.82); RED CELL DISTRIBUTION WIDTH 12.3 % (9.4-14.8)
[2020-06-05 04:44] LABS: CALCIUM 9.1 mg/dL (8.5-10.1); CHLORIDE 104 mmol/L (98-107)
[2020-06-05 04:47] LABS: ANION GAP 9 mmol/L (5-15); CREATININE 0.92 mg/dL (0.7-1.3)
[2020-06-05] MEDS: IBUPROFEN 600 MG TABLET PO SCH ×4 (05:26→22:43)
[2020-06-05] MEDS: NYSTATIN 500,000 UNITS/5 ML UDC PO SCH ×4 (05:27→22:43)
[2020-06-05] MEDS: OXYcodone IR 5MG TABLET PO PRN ×3 (05:27→15:45)
[2020-06-05 07:58] VITALS: BP 119/75
[2020-06-05] MEDS: SERTRALINE 50MG TABLET PO SCH (08:19)
[2020-06-05] MEDS: SENNA/DOCUSATE TABLET PO SCH (08:19)
[2020-06-05 12:46] LABS: C-REACTIVE PROTEIN, QUANT 0.47 mg/dL (0.02-0.49)
[2020-06-05 12:57] VITALS: BP 132/67
[2020-06-05] MEDS: ENOXAPARIN 40 MG/0.4 ML SQ SCH (14:29)
[2020-06-05] MEDS: NICOTINE 21 MG/24 HR PATCH.TD24 TD SCH (14:29)
[2020-06-05 19:55] VITALS: BP 109/68
[2020-06-05] MEDS: TRAZODONE 50MG TABLET PO SCH (21:00)
[2020-06-05] MEDS: PROMETHAZINE 25 MG/ML, 1ML IM PRN (23:54)
[2020-06-05] MEDS: DIAZEPAM 2 MG TABLET PO PRN (23:54)
[2020-06-06 00:11] VITALS: BP 113/72
[2020-06-06] MEDS: morphine SULFATE 10 MG/ML, 1ML IVPush PRN ×4 (02:53→21:53)
[2020-06-06] MEDS: SILVER SULF. CRM 1% , 25GM TP SCH ×3 (02:55→21:53)
[2020-06-06] MEDS: OXYcodone IR 5MG TABLET PO PRN ×2 (05:11→22:50)
[2020-06-06] MEDS: NYSTATIN 500,000 UNITS/5 ML UDC PO SCH ×4 (05:42→20:22)
[2020-06-06] MEDS: IBUPROFEN 600 MG TABLET PO SCH ×4 (05:42→21:52)
[2020-06-06] MEDS: ACETAMINOPHEN 325 MG TABLET PO SCH ×4 (05:42→22:49)
[2020-06-06 07:12] VITALS: BP 116/73
[2020-06-06] MEDS: GABAPENTIN 100 MG CAPSULE PO SCH ×2 (07:48→20:23)
[2020-06-06] MEDS: SERTRALINE 50MG TABLET PO SCH (07:48)
[2020-06-06] MEDS: SENNA/DOCUSATE TABLET PO SCH (07:50)
[2020-06-06 08:25] LABS: BASOPHILS # (AUTO) 0.07 x10^3/uL (0-0.3); BASOPHILS % (AUTO) 1 % (0-1); EOSINOPHILS # (AUTO) 0.29 x10^3/uL (0-0.8); EOSINOPHILS % (AUTO) 3 % (1-7); LYMPHOCYTES # (AUTO) 3.28 x10^3/uL (1-6.1); LYMPHOCYTES % (AUTO) 35 % (22-44); MD NO; MEAN CORPUSCULAR HEMOGLOBIN 30.7 pg (27.5-34.5); MEAN CORPUSCULAR HGB CONC 32.8 g/dL (33.2-36.2); MEAN CORPUSCULAR VOLUME 93.7 fL (81-97); MEAN PLATELET VOLUME 8.8 fL (7.4-10.4); MONOCYTES # (AUTO) 0.69 x10^3/uL (0-1.4); MONOCYTES % (AUTO) 7 % (2-9); NEUTROPHILS # (AUTO) 5.05 x10^3/uL (1.8-8.0); NEUTROPHILS % (AUTO) 54 % (42-75); PLATELET COUNT 261 x10^3/uL (130-400); RED BLOOD COUNT 5.48 x10^6/uL (4.38-5.82); RED CELL DISTRIBUTION WIDTH 12.2 % (9.4-14.8)
[2020-06-06 08:36] LABS: ALANINE AMINOTRANSFERASE 47 U/L (12-78); ALBUMIN 3.7 g/dL (3.4-5.0); ANION GAP 12 mmol/L (5-15); CALCIUM 8.8 mg/dL (8.5-10.1); CHLORIDE 104 mmol/L (98-107); CREATININE 0.98 mg/dL (0.7-1.3)
[2020-06-06] MEDS: PROMETHAZINE 25 MG/ML, 1ML IM PRN (08:37)
[2020-06-06 08:39] LABS: ALKALINE PHOSPHATASE 73 U/L (45-117); BILIRUBIN,TOTAL 0.9 mg/dL (0.2-1.0); CREATINE KINASE, TOTAL 576 U/L (39-308); TOTAL PROTEIN 6.8 g/dL (6.4-8.2)
[2020-06-06] MEDS: HYDROXYZINE PAMOATE 50MG CAP PO PRN (08:57)
[2020-06-06] MEDS: ENOXAPARIN 40 MG/0.4 ML SQ SCH ×2 (12:31→12:36)
[2020-06-06 13:21] VITALS: BP 110/70
[2020-06-06] MEDS: NICOTINE 21 MG/24 HR PATCH.TD24 TD SCH (16:22)
[2020-06-06 19:35] VITALS: BP 115/74
[2020-06-06 19:52] LABS: MICROSCOPIC NOT IND
[2020-06-06] MEDS: DIAZEPAM 2 MG TABLET PO PRN (20:23)
[2020-06-07] MEDS: TRAZODONE 50MG TABLET PO SCH (00:01)
[2020-06-07] MEDS: PROMETHAZINE 25 MG/ML, 1ML IM PRN ×3 (00:05→17:58)
[2020-06-07 00:35] VITALS: BP 118/74
[2020-06-07] MEDS: ACETAMINOPHEN 325 MG TABLET PO SCH ×4 (05:00→22:20)
[2020-06-07] MEDS: IBUPROFEN 600 MG TABLET PO SCH (06:00)
[2020-06-07 06:28] VITALS: BP 114/70
[2020-06-07] MEDS: GABAPENTIN 100 MG CAPSULE PO SCH ×2 (08:08→20:03)
[2020-06-07] MEDS: SERTRALINE 50MG TABLET PO SCH (08:08)
[2020-06-07] MEDS: SENNA/DOCUSATE TABLET PO SCH (08:08)
[2020-06-07] MEDS: NYSTATIN 500,000 UNITS/5 ML UDC PO SCH ×4 (08:08→21:13)
[2020-06-07] MEDS: SILVER SULF. CRM 1% , 25GM TP SCH ×2 (08:10→20:07)
[2020-06-07] MEDS: OXYcodone IR 5MG TABLET PO PRN ×2 (08:18→16:43)
[2020-06-07] MEDS ORDERED: IBUPROFEN 600 MG TABLET PO PRN (10:00)
[2020-06-07] MEDS: DOCUSATE 100 MG CAPSULE PO SCH ×2 (10:15→20:03)
[2020-06-07] MEDS: METHYLNALTREXONE 12 MG/0.6 ML SYR SQ SCH (10:17)
[2020-06-07 12:47] VITALS: BP 113/68
[2020-06-07] MEDS: morphine SULFATE 10 MG/ML, 1ML IVPush PRN ×2 (13:18→20:04)
[2020-06-07] MEDS: NICOTINE 21 MG/24 HR PATCH.TD24 TD SCH (14:51)
[2020-06-07] MEDS: ENOXAPARIN 40 MG/0.4 ML SQ SCH (14:51)
[2020-06-07 19:32] VITALS: BP 114/64
[2020-06-07] MEDS: DIAZEPAM 2 MG TABLET PO PRN (21:13)
[2020-06-08] MEDS: TRAZODONE 50MG TABLET PO SCH ×2 (00:04→21:00)
[2020-06-08] MEDS: PROMETHAZINE 25 MG/ML, 1ML IM PRN (00:04)
[2020-06-08 00:17] VITALS: BP 110/69
[2020-06-08] MEDS: OXYcodone IR 5MG TABLET PO PRN ×2 (01:11→17:42)
[2020-06-08] MEDS: NYSTATIN 500,000 UNITS/5 ML UDC PO SCH ×4 (06:06→20:08)
[2020-06-08] MEDS: ACETAMINOPHEN 325 MG TABLET PO SCH ×3 (06:07→17:35)
[2020-06-08 07:07] VITALS: BP 104/65
[2020-06-08] MEDS: SERTRALINE 50MG TABLET PO SCH (10:50)
[2020-06-08] MEDS: DOCUSATE 100 MG CAPSULE PO SCH ×2 (10:50→20:08)
[2020-06-08] MEDS: GABAPENTIN 100 MG CAPSULE PO SCH ×2 (10:50→20:08)
[2020-06-08] MEDS: SENNA/DOCUSATE TABLET PO SCH (10:50)
[2020-06-08] MEDS: SILVER SULF. CRM 1% , 25GM TP SCH (10:51)
[2020-06-08] MEDS ORDERED: OXYcodone IR 5MG TABLET PO PRN (13:00)
[2020-06-08] MEDS: MORPHINE SULFATE 4 MG/ML, 1ML IVPush PRN (14:53)
[2020-06-08] MEDS: NICOTINE 21 MG/24 HR PATCH.TD24 TD SCH (14:54)
[2020-06-08] MEDS: ENOXAPARIN 40 MG/0.4 ML SQ SCH (14:54)
[2020-06-08] MEDS ORDERED: ONDANSETRON 2MG/ML, 2ML IVPush PRN (15:00)
[2020-06-08 16:18] VITALS: BP 95/58
[2020-06-08 20:00] VITALS: BP 111/68
[2020-06-08] MEDS: HYDROXYZINE PAMOATE 50MG CAP PO PRN (20:08)
[2020-06-09 00:33] VITALS: BP 106/65
[2020-06-09] MEDS: SILVER SULF. CRM 1% , 25GM TP SCH ×2 (05:35→11:14)
[2020-06-09] MEDS: OXYcodone IR 5MG TABLET PO PRN ×3 (05:35→22:28)
[2020-06-09] MEDS: NYSTATIN 500,000 UNITS/5 ML UDC PO SCH ×4 (05:35→21:01)
[2020-06-09] MEDS: ACETAMINOPHEN 325 MG TABLET PO SCH ×4 (05:35→18:01)
[2020-06-09 06:54] VITALS: BP 110/62
[2020-06-09 07:17] LABS: BASOPHILS # (AUTO) 0.03 x10^3/uL (0-0.3); BASOPHILS % (AUTO) 0 % (0-1); EOSINOPHILS # (AUTO) 0.25 x10^3/uL (0-0.8); EOSINOPHILS % (AUTO) 3 % (1-7); LYMPHOCYTES # (AUTO) 2.91 x10^3/uL (1-6.1); LYMPHOCYTES % (AUTO) 36 % (22-44); MD NO; MEAN CORPUSCULAR HGB CONC 33.4 g/dL (33.2-36.2); MEAN CORPUSCULAR VOLUME 92.7 fL (81-97); MEAN PLATELET VOLUME 9.4 fL (7.4-10.4); MONOCYTES # (AUTO) 0.58 x10^3/uL (0-1.4); MONOCYTES % (AUTO) 7 % (2-9); NEUTROPHILS # (AUTO) 4.37 x10^3/uL (1.8-8.0); NEUTROPHILS % (AUTO) 54 % (42-75); PLATELET COUNT 243 x10^3/uL (130-400); RED BLOOD COUNT 4.78 x10^6/uL (4.38-5.82)
[2020-06-09 07:22] LABS: ALBUMIN 3.5 g/dL (3.4-5.0); ANION GAP 3 mmol/L (5-15); CALCIUM 8.9 mg/dL (8.5-10.1); CHLORIDE 108 mmol/L (98-107)
[2020-06-09 07:26] LABS: ALANINE AMINOTRANSFERASE 72 U/L (12-78); ALKALINE PHOSPHATASE 69 U/L (45-117); BILIRUBIN,TOTAL 0.7 mg/dL (0.2-1.0); CREATININE 0.77 mg/dL (0.7-1.3); TOTAL PROTEIN 6.2 g/dL (6.4-8.2)
[2020-06-09] MEDS: SENNA/DOCUSATE TABLET PO SCH (08:30)
[2020-06-09] MEDS: SERTRALINE 50MG TABLET PO SCH (08:30)
[2020-06-09] MEDS: DOCUSATE 100 MG CAPSULE PO SCH ×2 (08:30→21:01)
[2020-06-09] MEDS: GABAPENTIN 100 MG CAPSULE PO SCH ×2 (08:31→21:00)
[2020-06-09] MEDS: METHYLNALTREXONE 12 MG/0.6 ML SYR SQ SCH (11:13)
[2020-06-09 12:28] VITALS: BP 105/55
[2020-06-09] MEDS: ENOXAPARIN 40 MG/0.4 ML SQ SCH (14:56)
[2020-06-09] MEDS: NICOTINE 21 MG/24 HR PATCH.TD24 TD SCH (14:57)
[2020-06-09] MEDS: MORPHINE SULFATE 4 MG/ML, 1ML IVPush PRN (14:59)
[2020-06-09 19:50] VITALS: BP 127/73
[2020-06-09] MEDS: TRAZODONE 50MG TABLET PO SCH (21:01)
[2020-06-10] MEDS: SILVER SULF. CRM 1% , 25GM TP SCH ×3 (00:40→20:38)
[2020-06-10 01:28] VITALS: BP 108/63
[2020-06-10] MEDS: OXYcodone IR 5MG TABLET PO PRN ×2 (05:25→20:38)
[2020-06-10] MEDS: NYSTATIN 500,000 UNITS/5 ML UDC PO SCH ×4 (05:25→20:36)
[2020-06-10] MEDS: ACETAMINOPHEN 325 MG TABLET PO SCH ×4 (06:00→18:00)
[2020-06-10 07:44] VITALS: BP 109/70
[2020-06-10] MEDS: SENNA/DOCUSATE TABLET PO SCH (09:00)
[2020-06-10] MEDS: DOCUSATE 100 MG CAPSULE PO SCH ×2 (09:00→20:37)
[2020-06-10] MEDS ORDERED: METHYLNALTREXONE 12 MG/0.6 ML SYR SQ PRN (09:30)
[2020-06-10] MEDS: SERTRALINE 50MG TABLET PO SCH (09:34)
[2020-06-10] MEDS: GABAPENTIN 100 MG CAPSULE PO SCH ×2 (09:35→20:36)
[2020-06-10] MEDS: ENOXAPARIN 40 MG/0.4 ML SQ SCH (14:00)
[2020-06-10] MEDS: NICOTINE 21 MG/24 HR PATCH.TD24 TD SCH (14:00)
[2020-06-10 15:07] VITALS: BP 111/71
[2020-06-10 19:47] VITALS: BP 104/62
[2020-06-10] MEDS: TRAZODONE 50MG TABLET PO SCH (20:36)
[2020-06-10] MEDS: HYDROXYZINE PAMOATE 50MG CAP PO PRN (22:17)
[2020-06-11 00:11] VITALS: BP 111/59
[2020-06-11] MEDS: ACETAMINOPHEN 325 MG TABLET PO SCH ×4 (06:00→16:20)
[2020-06-11] MEDS: NYSTATIN 500,000 UNITS/5 ML UDC PO SCH ×4 (06:43→20:36)
[2020-06-11 07:29] VITALS: BP 97/56
[2020-06-11] MEDS: SILVER SULF. CRM 1% , 25GM TP SCH ×2 (09:00→21:59)
[2020-06-11] MEDS: DOCUSATE 100 MG CAPSULE PO SCH ×2 (10:12→20:37)
[2020-06-11] MEDS: SERTRALINE 50MG TABLET PO SCH (10:12)
[2020-06-11] MEDS: SENNA/DOCUSATE TABLET PO SCH (10:12)
[2020-06-11] MEDS: GABAPENTIN 100 MG CAPSULE PO SCH ×2 (10:12→20:37)
[2020-06-11] MEDS ORDERED: LORazepam 0.5MG TABLET PO PRN (11:30)
[2020-06-11 12:57] VITALS: BP 104/61
[2020-06-11] MEDS: ENOXAPARIN 40 MG/0.4 ML SQ SCH (15:00)
[2020-06-11] MEDS: NICOTINE 21 MG/24 HR PATCH.TD24 TD SCH ×2 (16:00→21:58)
[2020-06-11 19:14] VITALS: BP 122/72
[2020-06-11] MEDS: TRAZODONE 50MG TABLET PO SCH (20:37)
[2020-06-12 00:16] VITALS: BP 111/57
[2020-06-12] MEDS: ACETAMINOPHEN 325 MG TABLET PO SCH ×3 (01:30→06:00)
[2020-06-12] MEDS: NYSTATIN 500,000 UNITS/5 ML UDC PO SCH ×4 (05:50→22:12)
[2020-06-12] MEDS ORDERED: ACETAMINOPHEN 325 MG TABLET PO PRN (08:30)
[2020-06-12] MEDS: SENNA/DOCUSATE TABLET PO SCH (09:48)
[2020-06-12] MEDS: GABAPENTIN 100 MG CAPSULE PO SCH ×2 (09:49→22:12)
[2020-06-12] MEDS: SERTRALINE 50MG TABLET PO SCH (09:49)
[2020-06-12 10:10] VITALS: BP 109/67
[2020-06-12 14:16] VITALS: BP 118/69
[2020-06-12] MEDS: ENOXAPARIN 40 MG/0.4 ML SQ SCH ×2 (15:00→16:49)
[2020-06-12] MEDS: SILVER SULF. CRM 1% , 25GM TP SCH ×2 (16:48→22:32)
[2020-06-12] MEDS: NICOTINE 21 MG/24 HR PATCH.TD24 TD SCH (16:52)
[2020-06-12 19:06] VITALS: BP 123/72
[2020-06-12] MEDS: TRAZODONE 50MG TABLET PO SCH (22:12)
[2020-06-13] MEDS: OXYcodone IR 5MG TABLET PO PRN ×2 (00:01→00:41)
[2020-06-13 01:50] VITALS: BP 108/67
[2020-06-13] MEDS: HYDROXYZINE PAMOATE 50MG CAP PO PRN (02:51)
[2020-06-13 05:17] LABS: BASOPHILS # (AUTO) 0.06 x10^3/uL (0-0.3); BASOPHILS % (AUTO) 1 % (0-1); EOSINOPHILS # (AUTO) 0.25 x10^3/uL (0-0.8); EOSINOPHILS % (AUTO) 2 % (1-7); LYMPHOCYTES # (AUTO) 4.13 x10^3/uL (1-6.1); LYMPHOCYTES % (AUTO) 37 % (22-44); MD NO; MEAN CORPUSCULAR HGB CONC 33.1 g/dL (33.2-36.2); MEAN CORPUSCULAR VOLUME 93.7 fL (81-97); MEAN PLATELET VOLUME 8.8 fL (7.4-10.4); MONOCYTES # (AUTO) 0.96 x10^3/uL (0-1.4); MONOCYTES % (AUTO) 9 % (2-9); NEUTROPHILS # (AUTO) 5.86 x10^3/uL (1.8-8.0); NEUTROPHILS % (AUTO) 52 % (42-75); PLATELET COUNT 273 x10^3/uL (130-400); RED CELL DISTRIBUTION WIDTH 12.1 % (9.4-14.8)
[2020-06-13] MEDS: NYSTATIN 500,000 UNITS/5 ML UDC PO SCH (06:00)
[2020-06-13 07:40] VITALS: BP 97/55
[2020-06-13] MEDS ORDERED: TRAZODONE 50MG TABLET PO PRN (08:00)
[2020-06-13] MEDS ORDERED: OXYcodone IR 5MG TABLET PO PRN (08:00)
[2020-06-13] MEDS: SENNA/DOCUSATE TABLET PO SCH (08:06)
[2020-06-13] MEDS: SERTRALINE 50MG TABLET PO SCH (08:06)
[2020-06-13] MEDS ORDERED: GABAPENTIN 100 MG CAPSULE PO SCH (09:00)
[2020-06-13] MEDS: SILVER SULF. CRM 1% , 25GM TP SCH (10:03)
[2020-06-13] MEDS ORDERED: ACET325T26 PO (11:52)
[2020-06-13] MEDS ORDERED: NICO-487 TD (11:52)
[2020-06-13] MEDS ORDERED: GABA-826 PO (11:52)
[2020-06-13] MEDS ORDERED: SILV50CR TP (11:52)
[2020-06-13] MEDS ORDERED: IBUP-1222 PO (11:52)
[2020-06-13] MEDS ORDERED: SERT50TA28 PO (11:52)
[2020-06-13] MEDS ORDERED: OXYC5TAB3 PO (11:52)
[2020-06-13] MEDS ORDERED: HYDR50CA2 PO (11:52)
[2020-06-13 12:57] VITALS: BP 104/72
== END 2020-06-13 14:33 | disposition home health service (06) | DRG 935 ==
LOC: ED 09:20 → EDIP 09:56 → 3N 10:08
PROVIDERS: ADMIT Hospitalist; ATTEND Internal Medicine
DX: T22.212A Burn of second degree of left forearm, initial encounter (principal); J96.90 Respiratory failure, unspecified, unspecified whether with hypoxia or hypercapnia; T58.91XA Toxic effect of carbon monoxide from unspecified source, accidental (unintentional), initial encounter; T59.7X1A Toxic effect of carbon dioxide, accidental (unintentional), initial encounter; T59.811A Toxic effect of smoke, accidental (unintentional), initial encounter; T23.272A Burn of second degree of left wrist, initial encounter; T20.17XA Burn of first degree of neck, initial encounter; T21.13XA Burn of first degree of upper back, initial encounter; T25.122A Burn of first degree of left foot, initial encounter; T25.121A Burn of first degree of right foot, initial encounter; T31.0 Burns involving less than 10% of body surface; T79.8XXA Other early complications of trauma, initial encounter; X08.8XXA Exposure to other specified smoke, fire and flames, initial encounter; T40.605A Adverse effect of unspecified narcotics, initial encounter; J68.9 Unspecified respiratory condition due to chemicals, gases, fumes and vapors; S99.929A Unspecified injury of unspecified foot, initial encounter; B37.9 Candidiasis, unspecified; E66.9 Obesity, unspecified; F12.10 Cannabis abuse, uncomplicated; F17.210 Nicotine dependence, cigarettes, uncomplicated; F20.9 Schizophrenia, unspecified; F41.1 Generalized anxiety disorder; F43.0 Acute stress reaction; F43.10 Post-traumatic stress disorder, unspecified; G47.00 Insomnia, unspecified; J45.909 Unspecified asthma, uncomplicated; K59.00 Constipation, unspecified; W20.8XXA Other cause of strike by thrown, projected or falling object, initial encounter; F32.9 Major depressive disorder, single episode, unspecified; Y93.89 Activity, other specified; Y92.89 Other specified places as the place of occurrence of the external cause; Y99.8 Other external cause status; Z81.8 Family history of other mental and behavioral disorders; Z79.899 Other long term (current) drug therapy; Z88.8 Allergy status to other drugs, medicaments and biological substances; Z91.018 Allergy to other foods; Z91.09 Other allergy status, other than to drugs and biological substances; Z82.5 Family history of asthma and other chronic lower respiratory diseases
CPT/HCPCS: 36415; 70360; 70450; 71045; 72072; 72110; 72158; 80048; 80053; 80076; 81003; 82040; 82375; 82550; 83605; 83735; 84100; 84443; 85025; 85651; 86140; 90715; 93922; 93970; 96361; 96374; 96375; 96376; G0378; J1170; J1650; J1885; J2405; J2550; J3480; A9575; J2270; J3475; J7030

== ENCOUNTER → 2020-06-24 | Outpatient (CLI) | payer MEDICAID ==
[~2020-06-24] MED LIST changes: +ACET325T26 PO; +GABA-826 PO; +HYDR50CA2 PO; +IBUP-1222 PO; +NICO-487 TD; +OXYC5TAB3 PO; +SERT50TA28 PO; +SILV50CR TP
== END | disposition home or self-care (01) ==
LOC: WOUND 13:04
PROVIDERS: ATTEND Family Medicine
DX: T25.221A Burn of second degree of right foot, initial encounter (principal); T22.20XA Burn of second degree of shoulder and upper limb, except wrist and hand, unspecified site, initial encounter; T31.10 Burns involving 10-19% of body surface with 0% to 9% third degree burns; E66.01 Morbid (severe) obesity due to excess calories; F12.10 Cannabis abuse, uncomplicated; F41.1 Generalized anxiety disorder; F32.9 Major depressive disorder, single episode, unspecified; F17.210 Nicotine dependence, cigarettes, uncomplicated; Z68.1 Body mass index [BMI] 19.9 or less, adult; Z79.899 Other long term (current) drug therapy; X08.8XXA Exposure to other specified smoke, fire and flames, initial encounter; Y93.89 Activity, other specified; Y92.89 Other specified places as the place of occurrence of the external cause; Y99.8 Other external cause status
CPT/HCPCS: 99213